=== PATIENT | female | born 1975 | race Caucasian/White ===

== ENCOUNTER → 2019-10-29 | Outpatient (CLI) | payer OTHER ==
[~2019-10-29] MED LIST: ANTABUSE250 MG PO; ASPIRIN EC81 M1 PO; BENTYL20 MG PO; CARAFATE 11 GM/10 M1 PO; CIPRO250 M1 PO; CLONAZEPAM; CLONAZEPAM 1 MG1 M1; DESYREL300 MG; DESYREL300 MG PO; FLEXERIL PO; GEODON; GEODON80 MG; GEODON80 MG PO; HYDROCODON-ACE1 EAC7; HYDROCODON-ACE1 EAC7 PO; IBUPROFEN 600600 M1 PO; IBUPROFEN 800800 M1 PO; LAMICTAL; LAMICTAL 25 MG25 M1 PO; LAMICTAL XR200 MG; LOPRESSOR25 PO; LUNESTA; NORCO 5-325 TA1 EACH PO; NORFLEX100 MG PO; OLEPTRO ER300 MG PO; OXYCONTIN20 MG; PAXIL; PHENERGAN 25 MG25 M1 PO; PHENERGAN 25 MG25 MG PO; PREDNISONE 20 M20 M1 PO; PROMETHAZINE12.5 M1 PO; PROTONIX40 M2 PO; PROTONIX40 MG PO; TEGRETOL XR200 MG PO; ULTRAM 50MG TAB50 MG PO; UNKNOWN BP MED; VALIUM2 MG PO; VYVANSE50 MG PO; ZESTRIL; ZOFRAN4 MG PO
== END ==
LOC: M.MRI 16:28
DX: M47.816 Spondylosis without myelopathy or radiculopathy, lumbar region (principal); M51.26 Other intervertebral disc displacement, lumbar region; M12.88 Other specific arthropathies, not elsewhere classified, other specified site

== ENCOUNTER → 2019-11-28 | Outpatient (CLI) | payer OTHER ==
[~2019-11-28] MED LIST changes: +AFRIN15 M1 INH; +ALEVE220 M1 PO; +FLONASE 0.05%50 MCG NARES; +LATUDA120 MG PO; +MIRENA1 EACH VAG; +PRILOSEC OTC20 MG PO; +PROZAC40 MG PO; +WELLBUTRIN XL300 MG PO; +XANAX XR1 MG PO; +ZESTRIL20 MG PO; +ZUBSOLV 1.4-0.1 EACH SUBLING; +vitamin d PO
== END | disposition home or self-care (01) ==
LOC: M.PC 10:10
DX: M51.16 Intervertebral disc disorders with radiculopathy, lumbar region (principal); M47.26 Other spondylosis with radiculopathy, lumbar region; M79.604 Pain in right leg; M79.605 Pain in left leg; I10 Essential (primary) hypertension; F31.9 Bipolar disorder, unspecified; F41.9 Anxiety disorder, unspecified; F17.210 Nicotine dependence, cigarettes, uncomplicated; G47.30 Sleep apnea, unspecified; Z98.890 Other specified postprocedural states; Z79.899 Other long term (current) drug therapy; Z88.8 Allergy status to other drugs, medicaments and biological substances; Z98.84 Bariatric surgery status

== ENCOUNTER → 2020-12-25 | Outpatient (CLI) | payer OTHER | LOC: M.ULTRA 12-18 10:30 | PROVIDERS: ATTEND Family Medicine | DX: R74.8 Abnormal levels of other serum enzymes (principal) ==